=== PATIENT | female | born 1985 ===

== ENCOUNTER 2017-08-29 20:43 | Emergency (ER) | payer OTHER ==
[2017-08-29 20:51] VITALS: BMI 22.1
[2017-08-29 20:55] VITALS: PULSE 83; RESP 18; TEMP 98.7
--- NOTE | 2017-08-29 21:37 | ED PDOC ---
Arrival/HPI - General Chief Complaint: ENT Problem Time Seen by Provider: 08/29/17 21:08 Historian: Patient - History of Present Illness Narrative History of Present Illness (Text): 08/29/17 21:26 A 31 year old female with no significant past medical history, presents to the emergency department with a complaint of 2 day duration cough and sore throat. The patient states that she did not receive a flu shot this year. The patient denies fevers, chills, headache, dizziness, chest pain, shortness of breath, dyspnea on exertion, cough, abdominal pain, nausea, vomiting, diarrhea, back pain, neck pain, urinary/bowel changes, or any other complaint. Time/Duration: Other (2 Days) Symptom Onset: Sudden Symptom Course: Unchanged Activities at Onset: Light Context: Home, Work Past Medical History - Provider Review Nursing Documentation Reviewed: Yes - Infectious Disease Hx of Infectious Diseases: None - Cardiac Hx Heart Murmur: Yes - Psychiatric Hx Substance Use: No - Anesthesia Hx Anesthesia: No Family/Social History - Physician Review Nursing Documentation Reviewed: Yes Family/Social History: No Known Family HX Smoking Status: Never Smoked Hx Alcohol Use: Yes Frequency of alcohol use: Socially Hx Substance Use: No Allergies/Home Meds Allergies/Adverse Reactions: Allergies almond Allergy (Verified 08/29/17 20:51) ITCHING apple Allergy (Verified 08/29/17 20:51) ITCHING bee pollen Allergy (Verified 08/29/17 20:51) ANAPHYLAXIS Home Medications: Home Meds Medication Instructions Recorded Confirmed No Known Home Med 08/29/17 08/29/17 Review of Systems - Physician Review All systems were reviewed & negative as marked: Yes - Review of Systems Constitutional: absent: Fevers, Night Sweats ENT: Sore Throat Respiratory: Cough. absent: SOB Cardiovascular: absent: Chest Pain, CORNELIUS Gastrointestinal: absent: Abdominal Pain, Stool Changes, Diarrhea, Nausea, Vomiting Genitourinary Female: absent: Urine Output Changes Musculoskeletal: absent: Back Pain, Neck Pain Neurological: absent: Headache, Dizziness Physical Exam Vital Signs Reviewed: Yes Vital Signs Temp Pulse Resp BP Pulse Ox 08/29/17 22:47 83 18 106/73 100 08/29/17 20:55 98.7 F 83 18 127/75 98 Temperature: Afebrile Blood Pressure: Normal Pulse: Regular Respiratory Rate: Normal Appearance: Positive for: Well-Appearing, Non-Toxic, Comfortable Pain Distress: None Mental Status: Positive for: Alert and Oriented X 3 - Systems Exam Head: Present: Atraumatic, Normocephalic Pupils: Present: PERRL Extroacular Muscles: Present: EOMI Conjunctiva: Present: Normal Mouth: Present: Moist Mucous Membranes Pharnyx: Present: ERYTHEMA Neck: Present: Normal Range of Motion Respiratory/Chest: Present: Clear to Auscultation, Good Air Exchange. No: Respiratory Distress, Accessory Muscle Use Cardiovascular: Present: Regular Rate and Rhythm, Normal S1, S2. No: Murmurs Abdomen: Present: Normal Bowel Sounds. No: Tenderness, Distention, Peritoneal Signs Back: Present: Normal Inspection Upper Extremity: Present: Normal Inspection. No: Cyanosis, Edema Lower Extremity: Present: Normal Inspection. No: Edema Neurological: Present: GCS=15, CN II-XII Intact, Speech Normal Skin: Present: Warm, Dry, Normal Color. No: Rashes Psychiatric: Present: Alert, Oriented x 3, Normal Insight, Normal Concentration Medical Decision Making ED Course and Treatment: 08/29/17 21:38 Impression: A 31 year old female presents to the emergency department with a complaint of 2 day duration cough and sore throat. Plan: -- Chest X-ray -- Tylenol and Decadron -- Reassess and disposition Progress Notes: 08/29/17 22:32: No unilateral swelling or uvular deviation. - Lab Interpretations Lab Results: Lab Results 08/29/17 21:35: Influenza Typ A,B (EIA) Negative for flu a/b, Grp A Beta Strep Ag Negative - RAD Interpretation Radiology Orders: 08/29/17 21:17 CXR [CHEST TWO VIEWS (PA/LAT)] [RAD] Stat - Medication Orders Current Medication Orders: Discontinued Medications Acetaminophen (Tylenol 325mg Tab) 975 mg PO STAT STA Stop: 08/29/17 21:18 Last Admin: 08/29/17 21:43 Dose: 975 mg MAR Pain/Vitals Document 08/29/17 21:43 YP (Rec: 08/29/17 21:43 YP [id number]) Pain Reassessment Is This A Pain ReAssessment? No Sleep Is patient sleeping during reassessment? No Presence of Pain Presence of Pain Yes Dexamethasone (Decadron) 10 mg PO STAT STA Stop: 08/29/17 21:18 Last Admin: 08/29/17 21:43 Dose: 10 mg - Scribe Statement The provider has reviewed the documentation as recorded by the Armandoibjose Davis Provider Susan Attestation: All medical record entries made by the Scribe were at my direction and personally dictated by me. I have reviewed the chart and agree that the record accurately reflects my personal performance of the history, physical exam, medical decision making, and the department course for this patient. I have also personally directed, reviewed, and agree with the discharge instructions and disposition. Disposition/Present on Arrival - Present on Arrival Any Indicators Present on Arrival: No History of DVT/PE: No History of Uncontrolled Diabetes: No Urinary Catheter: No History of Decub. Ulcer: No History Surgical Site Infection Following: None - Disposition Have Diagnosis and Disposition been Completed?: Yes Diagnosis: Viral syndrome Disposition: HOME/ ROUTINE Disposition Time: 07:00 Condition: STABLE Discharge Instructions (ExitCare): Viral Syndrome (ED) Additional Instructions: please follow up with your doctor. return to er with worsening symptoms or concerns. Referrals: [facility] [Outside] - Follow up with primary [facility] [Outside] - Follow up with primary [facility] Moshe Wu, [Primary Care Provider] - Follow up with primary Forms: [employer] ([place]se)
[2017-08-29 22:47] VITALS: BP 106/73; O2SAT 100
--- NOTE | 2017-08-30 09:42 | RAD ---
HISTORY: cough COMPARISON: AllNo prior. TECHNIQUE: Chest PA and lateral FINDINGS: LUNGS: No active pulmonary disease. PLEURA: No significant pleural effusion identified. No pneumothorax apparent. CARDIOVASCULAR: Normal. OSSEOUS STRUCTURES: No significant abnormalities. Scoliosis without secondary degenerative change, mild. VISUALIZED UPPER ABDOMEN: Normal. OTHER FINDINGS: None. IMPRESSION: No active disease. Concordant results with the preliminary interpretation rendered by the emergency department physician procedure.
== END 2017-08-29 22:47 | disposition home or self-care (01) ==
LOC: ED 20:43
DX: B34.9 Viral infection, unspecified (principal)
CPT/HCPCS: 71020; 87070; 87430; 87804; 99283; J8540